=== PATIENT | female | born 1990 | race African-American/Black ===

== ENCOUNTER 2018-03-19 23:38 | Emergency (ER) | payer OTHER ==
[2018-03-20] MEDS ORDERED: HYDROCOD/APAP 7.5/325 IN 15ML UDCUP PO ONE (00:34)
[2018-03-20] MEDS ORDERED: NS 1,000 ML IV ONE ×2 (00:38)
--- NOTE | 2018-03-20 00:41 | EDPHY ---
H & P Stated Complaint: Dx with strep 1 week ago, now with severe sores/white plaques in mouth. Time Seen by Provider: 03/19/18 23:49 HPI/ROS: CHIEF COMPLAINT: Sore tongue and lip lesions are getting worse HISTORY OF PRESENT ILLNESS: This is a previously healthy 27-year-old female who is been ill for approximately 3 weeks. Initially in the 1st portion of the month of February, the 1st 2 weeks some 3 weeks ago she had a sense of fatigue and was go back to sleep and a nap frequently. This was without any sore throat at the time. Of note is that she has never had mono. Beginning 8 days ago she started having a sore throat. It was [id number] and she was seen at an urgent care 7 days ago. At that time her strep was positive thus she was placed on a course of an antibiotic. However in the interim she started getting worse. Her tongue started coming coated and the throat was more sore and she is having pain in her lips. She was again seen in urgent care at which time she was given the injection of an antibiotic, specifics unknown, as well as a shot of steroids. Again specifics unknown, perhaps was methylprednisolone verses Decadron. She was also is prescribed Miracle Mouthwash. Over the intervening 3 days she has continued to feel miserable. She has moderate pain with swallowing is is choosing to expectorate. Miracle mouthwash did numb things for. Time however she is out of that. She continues to have the source which have not improved. She also has some mild lip edema. With this she has been feeling generally unwell and run down. She has had a fever at the initial outset of the illness but now no longer. She cannot recall any specific exposure to any of the agents as out of outlined: HSV, strep, Coxsackie. The pain from the or lesions are specifically located without any radiation. She has not noticed anterior adenopathy. She finds minimal relief with over-the -counter medications. There is no radiation. Worse with swallowing: REVIEW OF SYSTEMS: Constitutional: No longer having fevers Eyes: No discharge . Hearing is normal ENT: See above. Cardiovascular: No chest pain, no palpitations. Respiratory: No cough, shortness of breath, or wheezing. Gastrointestinal: No nausea vomiting or diarrhea. No abdominal pain. Skin: No rashes. A 10 point review of systems was performed and negative except as noted above Source: Patient Exam Limitations: Other (Her mouth was so sore she could hardly talk.) - Personal History LMP (Females 10-55): 1-7 Days Ago Current Tetanus Diphtheria and Acellular Pertussis (TDAP): Unsure - Medical/Surgical History Hx Asthma: No Hx Chronic Respiratory Disease: No Hx Diabetes: No Hx Cardiac Disease: No Hx Renal Disease: No Hx Cirrhosis: No Hx Alcoholism: No Hx HIV/AIDS: No Hx Splenectomy or Spleen Trauma: No Other PMH: breast reduction - Social History Smoking Status: Current every day smoker Alcohol Use: None Drug Use: None - Physical Exam Exam: General Appearance: Alert, no distress. Afebrile. Normal phonation. No respiratory distress. her voice is normal, howevere she has pain with normally moving the lips in phonation, thus is mumbling to a little degree. Eyes: Pupils equal and round no pallor or injection. No icterus ENT, Mouth: Mucous membranes slightly dry Pharynx with slight erythema but no exudate. The tongue is coated in a dense, white film that is uniform. However, it is somewhat patchy on the underneath surface of the tongue. There is no induration of floor of the mouth. There is cracking and lesions present on the inner aspect of the upper lip. These do not have an erythematous base. There is sparing of the buccal mucosa without lesions. There is no mel vesicles seen. TM Clear. Neck: Mild anterior adenopathy. Supple. No JVD. Trachea in midline. Respiratory: No respiratory distress. Skin: Warm and dry, no rashes. Psychiatric: Normal affect. Patient is oriented X 3. There is no agitation Constitutional: Initial Vital Signs Temperature (C) 37.1 C 03/19/18 23:48 Heart Rate 122 H 03/19/18 23:48 Respiratory Rate 16 03/19/18 23:48 Blood Pressure 131/96 H 03/19/18 23:48 O2 Sat (%) 98 03/19/18 23:48 O2 Delivery Mode Room Air Allergies/Adverse Reactions: No Known Allergies Allergy (Unverified 03/19/18 23:40) Home Medications: Medication Instructions Recorded Acyclovir 400 mg PO 5XD #35 tablet 03/20/18 Fluconazole [Diflucan] 200 mg PO ONCE #2 tablet 10/29/18 Hydrocodone/Acetaminophen [Hycet 5 ml PO Q6H PRN #270 solution 03/20/18 7.5 mg-325 mg/15 ml Soln] Medical Decision Making ED Course/Re-evaluation: Swabs were taken for both HSV and oral yeast. Results are pending. She opted not for having any mono testing, which I suggested in view of her 2 weeks of fatigue earlier in the month. Initially she agreed for IV therapy in view of her feeling unsteady in her feet and her concentrated urine. However, when attempts were made for an IV start and initial 1 infiltrated she was reluctant to have any more attempts and declined. She did receive an oral dose of Lortab suspension 12.5 cc with moderate improvement. Prescriptions written for the following: Lortab suspension 5 cc every 6 hr as needed. This is half the normal dose in view of the fact that she may be on the Diflucan. Diflucan-if her yeast is positive Acyclovir if her HSV is positive. She will call tomorrow at around 11:00 a.m. For the results. I suspect that time it will be a mother as the patient is having trouble speaking due to the stomatitis. Differential Diagnosis: Diagnostic considerations include, but are not limited to, the following: Mononucleosis, strep throat, stomatitis, oral yeast, oral candidiasis, HSV 1, HSV 2, Coxsackie, [id number] disease, Becht's disease, Chelitits. - Data Points Microbiology Results: MICROBIOLOGY 03/19/18 00:36 Oral - Mouth Herpes Simplex Virus I (PCR) - Final Hsv-1 Dna Detected 03/19/18 00:36 Oral - Mouth Herpes Simplex Virus II (PCR) - Final Hsv-2 Dna Not Detected 03/19/18 00:36 Oral - Mouth Varicella-Zoster Group DNA (PCR) - Final Vzv Dna Not Detected 03/19/18 00:36 Oral - Mouth HSV/VZV PCR Additional Information - Final Medications Given: Discontinued Medications Hydrocodone Bitart/Acetaminophen (Hycet Oral Liquid) 12.5 ml PO EDNOW ONE Stop: 03/20/18 00:35 Last Admin: 03/20/18 00:53 Dose: 12.5 ml Sodium Chloride (Ns) 1,000 mls @ 0 mls/hr IV EDNOW ONE; Wide Open PRN Reason: Protocol Stop: 03/20/18 00:39 Last Admin: 03/20/18 00:57 Dose: Not Given Sodium Chloride (Ns) 1,000 mls @ 0 mls/hr IV EDNOW ONE; Wide Open PRN Reason: Protocol Stop: 03/20/18 00:39 Last Admin: 03/20/18 00:58 Dose: Not Given Departure - Departure Disposition: Home, Routine, Self-Care Clinical Impression: Stomatitis and mucositis, unspecified Condition: Good Instructions: Hydrocodone/Acetaminophen (By mouth), Gingivostomatitis (ED) Additional Instructions: For the pain: Lortab Suspension: 5 - 12.5 ml every 6 hours as needed for the pain that occurs with swallowing. Call us tomorrow about 11:00 am for the results: If the yeast is Positive: Diflucan 200 mg once, repeat in 7 days. If the Herpes test is positive: Acyclovir 400 mg 5 times a day for 7 days Referrals: Patient,NotPresent [Primary Care Provider] - As per Instructions Lisa Lora MD [Medical Doctor] - 3-4 days, if not improved Stand Alone Forms: School Excuse, Work Excuse Prescriptions: Acyclovir 400 mg PO 5XD #35 tablet Fluconazole [Diflucan] 200 mg PO ONCE #2 tablet Hydrocodone/Acetaminophen [Hycet 7.5 mg-325 mg/15 ml Soln] 5 ml PO Q6H PRN #270 solution PRN Reason: moderate to severe pain
[2018-03-20] MEDS ORDERED: HYDROCOD/APAP 7.5/325 IN 15ML UDCUP ONE (00:50)
[2018-03-20 02:41] VITALS: BP 123/66
== END 2018-03-20 01:22 | disposition home or self-care (01) ==
LOC: CED 23:38
DX: K12.30 Oral mucositis (ulcerative), unspecified (principal); K12.1 Other forms of stomatitis; F17.200 Nicotine dependence, unspecified, uncomplicated; Z79.2 Long term (current) use of antibiotics
CPT/HCPCS: 87529-90; 87798-90